=== PATIENT | male | born 1965 | race Caucasian/White ===

== ENCOUNTER 2016-06-13 22:19 | Inpatient (IN) | payer OTHER ==
[~2016-06-13] VITALS: Ht 175.3 cm; Wt 118.8 kg
[2016-06-13 22:22] VITALS: BP 162/73
[2016-06-13] MEDS ORDERED: HCTZ/LISINOPRIL1 TA3 PO (22:28)
[2016-06-13] MEDS ORDERED: LEVOTHYROXIN0.112 M1 PO (22:29)
[2016-06-13 22:45] LABS: HEMOGLOBIN 16.2 g/dL (14.1-18.0); LYMPH % 25.6 % (10-50)
[2016-06-13 23:14] LABS: BUN 20 mg/dL (7-18); GFR (ESTIMATED) 70 ML/MIN (>60)
--- NOTE | 2016-06-13 23:21 | Emergency Room Report ---
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 N Clinical Suspician of Infection? N Mental Status: 1 - Regular (Normal Baseline) Sepsis Risk:Low Sepsis Risk Have you (or family members/close friends) recently traveled outside the [place]? N If Yes, where/when: Have you had exposure to infectious disease within the past month? N TB? Other? Specify: Source patient, RN notes reviewed, family, EMS, old records Exam Limitations no limitations Comment acute onset of pressure like chest pain mid sternal with no radiation and was started tonight after eating - he has hx of gerd but this felt different Cardiac Chest Pain Chest pain indicative of cardiac Yes Timing/Duration 1-3 hours, gone now Severity/Quality moderate, pressure Location central Chest Pain Radiation no radiation Activities at Onset light activity Nitro Today/Relief 0.4 mg x 1, provided by EMS, mild relief Aspirin Treatment Today 81 mg x 4, provided by EMS Beta melissa treatment today no beta melissa taken Cardiac risk factors + family history, HTN controlled, obesity Prior Workup/Intervention no prior cardiac workup Timing/Duration this evening Severity moderate ALLERGIES Coded Allergies: No Known Allergies (06/13/16) Home Medications Reported Medications LISINOPRIL/HYDROCHLOROTHIAZIDE (Lisinopril-Hctz 20-12.5 MG Tab) 1 TAB PO DAILY #30 Levothyroxine Sodium (Levothyroxine 0.112MG) 0.112 MG PO DAILY #30 History Medical History General CAD? No Angina: No [place]: No Hypertension? Yes Hyperlipidemia? No CHF? No DVT? No PE? No COPD? No Asthma? No Anemia? No GERD? No Gastric ulcers? No GI Bleed? No Hernia? No Thyroid Problems? Yes Hypothyroidism? No CVA? No Seizures? No Diabetes? No Renal Insuffiency? No End Stage Renal Disease? No UTI? No Stones? No BPH? No GB Disease: No Nephritic Syndrome? No Asplenia? No Hepatitis? No Sickle Cell Disease? No Arthritis? No Migraines? No Cataracts? No Glaucoma? No MRSA? No HIV? No TB? No Anxiety? No Depression? No Cancer? No More? No Immunization Hx DT/Tetanus Unknown Surgical Hx Previous Surgery?Y LEFT FINGER Social History Smoking Hx Smoker: Current Every Day Smoker Tobacco: Yes Type Cigarettes Alcohol Alcohol: No Drugs none Review of Systems All Other Systems Reviewed and Negative Constitutional denies fever Eyes denies drainage ENT denies: epistaxis, throat pain. Respiratory denies cough, denies shortness of breath, denies wheezing Cardiovascular see HPI, chest pain, denies syncope Gastrointestinal denies abdominal pain, denies diarrhea, denies vomiting Genitourinary denies: dysuria, frequency, hesitancy, hematuria. Musculoskeletal denies back pain, denies joint pain, denies joint swelling, denies neck pain Skin denies rash Psychiatric/Neurological denies seizure Physical Exam Vital Signs Vital Signs Date Time Temp Pulse Resp B/P Pulse O2 O2 Flow FiO2 Ox Delivery Rate 06/13 2339 68 18 152/76 96 02/ 2305 73 16 163/74 92 / 2222 98.6 77 16 162/73 94 - WBC >12,000 or <4,000 or 10% bands? 2 or more SIRS Criteria Met? B/P:152/76 MAP:102 Creatinine >2.0? UA output<0.5ml/kg/hr for 2 hrs? Platelet count >100,000? Lactate >2.0mmol/1? INR >1.2 or PTT > than 60 sec? Evidence of Organ Dysfunction? Provider documented clinical suspician of infection? N Sepsis Criteria Count: 0 Sepsis Risk: Low Sepsis Risk General Appearance no apparent distress Eye Exam - bilateral eye PERRL, bilateral eye EOMI Ear, Nose, Throat normal ENT inspection Neck supple Respiratory Status No: respiratory distress. Lung Sounds bilateral: lungs clear. 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 No Results/Orders Laboratory Tests 06/13/160: Sodium 138, Potassium 3.9, Chloride 105, Carbon Dioxide 25, BUN 20 H, Creatinine 1.1, Estimated Creat Clear 134, Estimated GFR (MDRD) 70, Glucose 135 H, Calcium 8.7, Total Bilirubin 0.3, AST 14 L, ALT 31, Alkaline Phosphatase 65, Creatine Kinase 219, CK-MB (CK-2) Rel Index 1.0, CK and CKMB Interp 2.2, Troponin I < 0.02, Total Protein 7.3, Albumin 3.4, Globulin 3.9 H, Albumin/ Globulin Ratio 0.9 L, WBC 7.9, RBC 4.92, Hgb 16.2, Hct 45.9, MCV 93.4, RDW 13.7 , Plt Count 171, MPV 9.7, Gran % 62.7, Gran # 4.9, Lymphocytes % 25.6, Monocytes % 5.8, Eosinophils % 4.6, Basophils % 1.3, Lymphocytes # 2.0, Monocytes # 0.5, Eosinophils # 0.4, Basophils # 0.1, PUBS MCHC 35.3, MCH 33.0 H Current Medication Orders Sig/Torri Start time Last Medication Dose Route Stop Time Status Admin Famotidine 20 MG ONCE ONE 06/13 2314 DC 06/13 IV 06/13 2315 2308 Metoclopramide HCl 10 MG ONCE ONE 06/13 2314 DC 06/13 IVP 06/13 2315 2308 Sodium Chloride 8 ML ONCE ONE 06/13 2314 DC 06/13 IV 06/13 2315 2308 Metoclopramide HCl 0 .STK-MED ONE 06/13 2304 DC .ROUTE Famotidine 0 .STK-MED ONE 06/13 2303 DC IV Sodium Chloride 10 ML PRN PRN 06/13 2229 AC IV 06/14 2229 Orders Procedure Date/time Status Decision to admit 06/13 233 Active 12 LEAD EKG-ZORA (INITIAL) 06/13 2229 Active ELECTROCARDIOGRAM REQUEST 06/13 2229 Active CHEST(2 VIEWS-NOT PORTABLE) 06/13 2229 Active IV SALINE LOCK 06/13 2229 Active TRADEMARK PARALEGAL 06/13 2229 Active CBC WITH AUTO DIFF 06/13 2229 Complete CARDIAC ENZYMES 06/13 2229 Complete CHEM 12 PROFILE 06/13 2229 Complete CM/EKG 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 ST/Twave chgs XRAY/CT/US XRAY/CT/US XRAY chest XR interpretation by reviewed by me Xray Results normal/NAD Departure Departure Time of Disposition 2345 Disposition Still a Patient Clinical Impression Primary Impression: Chest pain Qualifiers: Chest pain type: precordial chest pain Qualified Code: R07.2 - Precordial pain Secondary Impressions: GERD (gastroesophageal reflux disease) Qualifiers: Esophagitis presence: esophagitis presence not specified Qualified Code: K21.9 - Gastro-esophageal reflux disease without esophagitis HTN (hypertension) Qualifiers: Hypertension type: essential hypertension Qualified Code: I10 - Essential (primary) hypertension Condition STABLE Referrals NELIA GHOTRA (Family) ED Critical Care Critical Care No at [phone]
--- NOTE | 2016-06-13 23:21 | Emergency Room Report ---
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 N Clinical Suspician of Infection? N Mental Status: 1 - Regular (Normal Baseline) Sepsis Risk:Low Sepsis Risk Have you (or family members/close friends) recently traveled outside the [place]? N If Yes, where/when: Have you had exposure to infectious disease within the past month? N TB? Other? Specify: Source patient, RN notes reviewed, family, EMS, old records Exam Limitations no limitations Comment acute onset of pressure like chest pain mid sternal with no radiation and was started tonight after eating - he has hx of gerd but this felt different Cardiac Chest Pain Chest pain indicative of cardiac Yes Timing/Duration 1-3 hours, gone now Severity/Quality moderate, pressure Location central Chest Pain Radiation no radiation Activities at Onset light activity Nitro Today/Relief 0.4 mg x 1, provided by EMS, mild relief Aspirin Treatment Today 81 mg x 4, provided by EMS Beta melissa treatment today no beta melissa taken Cardiac risk factors + family history, HTN controlled, obesity Prior Workup/Intervention no prior cardiac workup Timing/Duration this evening Severity moderate ALLERGIES Coded Allergies: No Known Allergies (06/13/16) Home Medications Reported Medications LISINOPRIL/HYDROCHLOROTHIAZIDE (Lisinopril-Hctz 20-12.5 MG Tab) 1 TAB PO DAILY #30 Levothyroxine Sodium (Levothyroxine 0.112MG) 0.112 MG PO DAILY #30 History Medical History General CAD? No Angina: No [place]: No Hypertension? Yes Hyperlipidemia? No CHF? No DVT? No PE? No COPD? No Asthma? No Anemia? No GERD? No Gastric ulcers? No GI Bleed? No Hernia? No Thyroid Problems? Yes Hypothyroidism? No CVA? No Seizures? No Diabetes? No Renal Insuffiency? No End Stage Renal Disease? No UTI? No Stones? No BPH? No GB Disease: No Nephritic Syndrome? No Asplenia? No Hepatitis? No Sickle Cell Disease? No Arthritis? No Migraines? No Cataracts? No Glaucoma? No MRSA? No HIV? No TB? No Anxiety? No Depression? No Cancer? No More? No Immunization Hx DT/Tetanus Unknown Surgical Hx Previous Surgery?Y LEFT FINGER Social History Smoking Hx Smoker: Current Every Day Smoker Tobacco: Yes Type Cigarettes Alcohol Alcohol: No Drugs none Review of Systems All Other Systems Reviewed and Negative Constitutional denies fever Eyes denies drainage ENT denies: epistaxis, throat pain. Respiratory denies cough, denies shortness of breath, denies wheezing Cardiovascular see HPI, chest pain, denies syncope Gastrointestinal denies abdominal pain, denies diarrhea, denies vomiting Genitourinary denies: dysuria, frequency, hesitancy, hematuria. Musculoskeletal denies back pain, denies joint pain, denies joint swelling, denies neck pain Skin denies rash Psychiatric/Neurological denies seizure Physical Exam Vital Signs Vital Signs Date Time Temp Pulse Resp B/P Pulse O2 O2 Flow FiO2 Ox Delivery Rate 06/13 2339 68 18 152/76 96 02/ 2305 73 16 163/74 92 / 2222 98.6 77 16 162/73 94 - WBC >12,000 or <4,000 or 10% bands? 2 or more SIRS Criteria Met? B/P:152/76 MAP:102 Creatinine >2.0? UA output<0.5ml/kg/hr for 2 hrs? Platelet count >100,000? Lactate >2.0mmol/1? INR >1.2 or PTT > than 60 sec? Evidence of Organ Dysfunction? Provider documented clinical suspician of infection? N Sepsis Criteria Count: 0 Sepsis Risk: Low Sepsis Risk General Appearance no apparent distress Eye Exam - bilateral eye PERRL, bilateral eye EOMI Ear, Nose, Throat normal ENT inspection Neck supple Respiratory Status No: respiratory distress. Lung Sounds bilateral: lungs clear. 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 No Results/Orders Laboratory Tests 06/13/160: Sodium 138, Potassium 3.9, Chloride 105, Carbon Dioxide 25, BUN 20 H, Creatinine 1.1, Estimated Creat Clear 134, Estimated GFR (MDRD) 70, Glucose 135 H, Calcium 8.7, Total Bilirubin 0.3, AST 14 L, ALT 31, Alkaline Phosphatase 65, Creatine Kinase 219, CK-MB (CK-2) Rel Index 1.0, CK and CKMB Interp 2.2, Troponin I < 0.02, Total Protein 7.3, Albumin 3.4, Globulin 3.9 H, Albumin/ Globulin Ratio 0.9 L, WBC 7.9, RBC 4.92, Hgb 16.2, Hct 45.9, MCV 93.4, RDW 13.7 , Plt Count 171, MPV 9.7, Gran % 62.7, Gran # 4.9, Lymphocytes % 25.6, Monocytes % 5.8, Eosinophils % 4.6, Basophils % 1.3, Lymphocytes # 2.0, Monocytes # 0.5, Eosinophils # 0.4, Basophils # 0.1, PUBS MCHC 35.3, MCH 33.0 H Current Medication Orders Sig/Torri Start time Last Medication Dose Route Stop Time Status Admin Famotidine 20 MG ONCE ONE 06/13 2314 DC 06/13 IV 06/13 2315 2308 Metoclopramide HCl 10 MG ONCE ONE 06/13 2314 DC 06/13 IVP 06/13 2315 2308 Sodium Chloride 8 ML ONCE ONE 06/13 2314 DC 06/13 IV 06/13 2315 2308 Metoclopramide HCl 0 .STK-MED ONE 06/13 2304 DC .ROUTE Famotidine 0 .STK-MED ONE 06/13 2303 DC IV Sodium Chloride 10 ML PRN PRN 06/13 2229 AC IV 06/14 2229 Orders Procedure Date/time Status Decision to admit 06/13 233 Active 12 LEAD EKG-ZORA (INITIAL) 06/13 2229 Active ELECTROCARDIOGRAM REQUEST 06/13 2229 Active CHEST(2 VIEWS-NOT PORTABLE) 06/13 2229 Active IV SALINE LOCK 06/13 2229 Active 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 ST/Twave chgs XRAY/CT/US XRAY/CT/US XRAY chest XR interpretation by reviewed by me Xray Results normal/NAD Departure Departure Time of Disposition 2345 Disposition Still a Patient Clinical Impression Primary Impression: Chest pain Qualifiers: Chest pain type: precordial chest pain Qualified Code: R07.2 - Precordial pain Secondary Impressions: GERD (gastroesophageal reflux disease) Qualifiers: Esophagitis presence: esophagitis presence not specified Qualified Code: K21.9 - Gastro-esophageal reflux disease without esophagitis HTN (hypertension) Qualifiers: Hypertension type: essential hypertension Qualified Code: I10 - Essential (primary) hypertension Condition STABLE Referrals NELIA GHOTRA (Family) ED Critical Care Critical Care No at [phone]
[2016-06-14] VITALS (11 sets, daily range): BP systolic 116–152; BP diastolic 50–95
--- NOTE | 2016-06-14 07:53 | CONSULT NOTE ---
Standard Demographics Patient Demo Date of Consultation: 06/14/16 Referring Provider: Karissa Em MD Reason for Consultation: NSTEMI PRIMARY DIAGNOSIS: CHEST PAIN Problem list Problem list: 1. Tobacco use, started as teenager 2. Hypothyroidism, on replacementon 3. Hypertension 4. Strong family history coronary disease in 2 brothers. One had bypass in his early 50s the other has had stents in his late 40s. 5. 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 History of present illness: History of present illness: 51-year-old white male developed onset of substernal chest discomfort, heaviness , tightness after eating supper. Patient states he fell he was having a heart attack. He called emergency medical services to transport him to the hospital. In route they gave him a sublingual nitroglycerin, he "belched" and symptoms resolved shortly thereafter. He was evaluated in the emergency department and kept overnight for observation. His cardiac troponins have returned elevated consistent with myocardial infarction. Electrocardiogram shows sinus rhythm without acute change. Cardiology consulted for further evaluation and treatment. Patient denies any further episodes of chest pain overnight. Past Medical History: General: Hypertension Yes CVA No Seizures No TB No COPD No Asthma No Diabetes No Angina No [place] No Hyperlipidemia No Cancer No MRSA No GB Disease No Past Surgical HX: Previous Surgery?Y LEFT FINGER Allergies Coded Allergies: No Known Allergies (06/13/16) Home medications: Reported Medications LISINOPRIL/HYDROCHLOROTHIAZIDE (Lisinopril-Hctz 20-12.5 MG Tab) 1 TAB PO DAILY #30 Levothyroxine Sodium (Levothyroxine 0.112MG) 0.112 MG PO DAILY #30 Current Medications: Current Medications Levothyroxine Sodium 0.112 MG DAILY PO (UNV) Lisinopril/HCTZ 1 TAB DAILY PO (UNV) Aspirin 324 MG ONCE ONE PO (UNV) Fentanyl Citrate 25 MCG PRN PRN IV (UNV) Fentanyl Citrate 50 MCG PRN PRN IV (UNV) Flumazenil 0.2 MG PRN PRN IV (UNV) Heparin Sodium/Sodium Chloride 3,000 UNITS PRN PRN IV (UNV) Lidocaine HCl 20 ML ONCE ONE IJ (UNV) Midazolam HCl 1 MG PRN PRN IV (UNV) Midazolam HCl 1 MG PRN PRN IV (UNV) Naloxone HCl 0.4 MG [id number] PRN IV (UNV) Nitroglycerin 800 MCG PRN PRN IV (UNV) Prasugrel 60 MG ONCE ONE PO (UNV) Verapamil HCl 5 MG PRN PRN IV (UNV) Heparin Sodium/Sodium Chloride 1,500 ML .STK-MED ONE IV (DC) Heparin Sodium (Beef Lung) 0 .STK-MED ONE .ROUTE (DC) Lidocaine HCl 0 .STK-MED ONE .ROUTE (DC) Nitroglycerin 1 IN Q8 TP (UNV) Nicotine 21 MG DAILYP PRN TD (UNV) Ondansetron HCl 4 MG Q6HP PRN IV (UNV) Sodium Chloride 1,000 ML .[id number] IV (UNV) Sodium Chloride 10 ML PRN PRN IV (UNV) Pantoprazole Sodium 40 MG BID IV (UNV) Nitroglycerin 0 .STK-MED ONE .ROUTE (DC) Nitroglycerin 1 IN ONCE ONE TP (DC) Famotidine 20 MG ONCE ONE IV (DC) Metoclopramide HCl 10 MG ONCE ONE IVP (DC) Sodium Chloride 8 ML ONCE ONE IV (DC) Metoclopramide HCl 0 .STK-MED ONE .ROUTE (DC) Famotidine 0 .STK-MED ONE IV (DC) Sodium Chloride 10 ML PRN PRN IV Immunization HX DT/Tetanus 1-4 Years Flu Refused Pneumonia Never Had Other WOULD LIKE FLU SHOT AT DISCHARGE TB Test in last year No Family history Family HX Family Hx Insignificant No Diabetes No CAD Yes Hypertension Yes Hyperlipidemia No Cancer Yes TB No Social Hx: Smoking HX Tobacco Yes Type Cigarettes Packs/day 1 1/2 - 2 PACKS Are you/the child exposed to second-hand smoke: Yes Alcohol Alcohol: No Hx of Drug Use Drug Use? No Patien't marital status is Patient's support system is good Review of systems: Constitutional No: no symptoms reported. Respiratory No: no symptoms reported. Cardiovascular see HPI, chest pain Gastrointestinal/Abdominal No no symptoms reported Genitourinary No: no symptoms reported. Musculoskeletal No: no symptoms reported. Neurological No: no symptoms reported. Exam: Admission Vital Signs: 1ST Vital Signs Result Date Time Pulse Ox 94 06/13 2221 B/P 162/73 06/13 2221 Temp 98.6 06/13 2221 Pulse 77 06/13 2221 Resp 16 06/13 2221 O2 Delivery ROOM AIR 06/14 120 O2 Flow Rate 2 06/14 0349 Last Vital Signs: Vital Signs Result Date Time Pulse Ox 96 06/14 442 B/P 116/50 06/14 442 O2 Delivery ROOM AIR 06/14 442 Temp 97.5 06/14 442 Pulse 61 06/14 442 Resp 20 06/14 442 O2 Flow Rate 2 06/14 0349 Exam General appearance: alert, awake, no acute distress Neck: no carotid bruit, no JVD Cardiovascular: regular rate & rhythm, no murmur Respiratory: good air movement, wheezing ABD: soft, no tenderness Extremities: moves all, no peripheral edema Neuro: alert, intact, oriented, speech clear Laboratory data: Laboratory Tests 06/14/16 0610: Creatine Kinase 283, CK-MB (CK-2) Rel Index 4.7 H, CK and CKMB Interp 13.3 *H, Troponin I 1.12 H 06/14/16 0305: Creatine Kinase 238, CK-MB (CK-2) Rel Index 2.7, CK and CKMB Interp 6.4 H, Troponin I 0.50 H 06/14/16 0000: TSH 1.87, Thyroxine (T4) 6.6 06/13/16 2240: Sodium 138, Potassium 3.9, Chloride 105, Carbon Dioxide 25, BUN 20 H, Creatinine 1.1, Estimated Creat Clear 134, Estimated GFR (MDRD) 70, Glucose 135 H, Calcium 8.7, Total Bilirubin 0.3, AST 14 L, ALT 31, Alkaline Phosphatase 65, Creatine Kinase 219, CK-MB (CK-2) Rel Index 1.0, CK and CKMB Interp 2.2, Troponin I < 0.02, Total Protein 7.3, Albumin 3.4, Globulin 3.9 H, Albumin/ Globulin Ratio 0.9 L, WBC 7.9, RBC 4.92, Hgb 16.2, Hct 45.9, MCV 93.4, RDW 13.7 , Plt Count 171, MPV 9.7, Gran % 62.7, Gran # 4.9, Lymphocytes % 25.6, Monocytes % 5.8, Eosinophils % 4.6, Basophils % 1.3, Lymphocytes # 2.0, Monocytes # 0.5, Eosinophils # 0.4, Basophils # 0.1, PUBS MCHC 35.3, MCH 33.0 H Plan: Assessment: 1. Chest pain with positive troponins without electrocardiogram change consistent with non-ST elevation myocardial infarction. Risk and benefits of cardiac catheterization discussed with the patient. He agrees to proceed. Patient will receive 60mg of Effient by mouth and aspirin 324 mg by mouth now prior to cath. 2. Hypertension 3. Tobacco use 4. Hypothyroidism Recommendations: Discussed with Dr. Argueta. See above at 1224
--- NOTE | 2016-06-14 07:58 | PHARMACY CLINIC NOTE ---
Patient Demographics Patient Demographics Admission date: 06/14/16 Date: 06/14/16 Time: 0758 Allergies Coded Allergies: No Known Allergies (06/13/16) HEIGHT- FT: 5 IN: 9.00 K.830 VTE General Information Labs: Laboratory Tests 06/13 2240 Hematology Hgb (14.1 - 18.0 g/dL) 16.2 Hct (42.0 - 52.0 %) 45.9 Plt Count (142 - 424 K/mm3) 171 Disclaimer The following section includes nursing documentation that has been pulled in for pharmacy review. Patient's VTE score: 2 Patient's VTE Risk: VERY LOW RISK Clinical trial participant? No VTE prophylaxis NQF [id number] VTE prophylaxis ordered? Yes Type of prophylaxis/treatment: SHELDON at 0758
--- NOTE | 2016-06-14 08:26 | RADIOLOGY REPORT PS360 ---
CHEST(2 VIEWS-NOT PORTABLE) HISTORY: Chest pain CP ORDERING PHYSICIAN: Regan Em MD PATIENT AGE: 51 years COMPARISON: None available FINDINGS: The cardiomediastinal silhouette and pulmonary vascularity are within normal limits. There is coarsening of the bronchovascular markings which may be related to chronic bronchitis. Mild hyperinflation. No lobar consolidation or collapse.. No acute bony abnormalities. IMPRESSION: Coarsening of bronchovascular markings suggesting chronic peribronchial inflammatory change which may be confirmed with follow-up otherwise negative
--- NOTE | 2016-06-14 09:06 | HISTORY AND PHYSICAL REPORT ---
Demographics: Admit date: 06/13/16 Chief complaint: chest pain PRIMARY DIAGNOSIS: CHEST PAIN Allergies: Coded Allergies: No Known Allergies (06/13/16) History of present illness: History of present illness: 51-year-old white male developed onset of substernal chest discomfort, heaviness , tightness after eating supper. Patient states he fell he was having a heart attack. He called emergency medical services to transport him to the hospital. In route they gave him a sublingual nitroglycerin, he "belched" and symptoms resolved shortly thereafter. He was evaluated in the emergency department and kept overnight for observation. His cardiac troponins have returned elevated consistent with myocardial infarction. Electrocardiogram shows sinus rhythm without acute change. Cardiology consulted for further evaluation and treatment. Patient denies any further episodes of chest pain overnight. Past medical history: Family HX Diabetes No CAD Yes Hypertension Yes Hyperlipidemia No Cancer Yes TB No Immunization HX DT/Tetanus 1-4 Years Ago Flu Refused Pneumonia Never Had Other WOULD LIKE FLU SHOT AT DISCHARGE TB Test in last year No General CAD? No Angina: No IA: No Hypertension? Yes Hyperlipidemia? No CHF? No DVT? No PE? No COPD? No Asthma? No Anemia? No GERD? Yes Gastric ulcers? No GI Bleed? No Hernia? No Thyroid Problems? Yes Hypothyroidism? No CVA? No Seizures? No Diabetes? No Renal Insuffiency? No UTI? No Stones? No BPH? No GB Disease: No Nephritic Syndrome? No Asplenia? No Hepatitis? No Sickle Cell Disease? No Arthritis? No Migraines? No Cataracts? No Glaucoma? No MRSA? No HIV? No TB? No Anxiety? No Depression? No Cancer? No More? No Past Surgical HX Previous Surgery?Y LEFT FINGER Current home meds: Reported Medications LISINOPRIL/HYDROCHLOROTHIAZIDE (Lisinopril-Hctz 20-12.5 MG Tab) 1 TAB PO DAILY #30 Levothyroxine Sodium (Levothyroxine 0.112MG) 0.112 MG PO DAILY #30 Social Hx: Smoking HX Tobacco Yes Type Cigarettes Packs/day 1 1/2 - 2 PACKS Are you/the child exposed to second-hand smoke: Yes Alcohol Alcohol: No Hx of Drug Use Drug Use? No Patien't marital status is Patient's support system is good Review of systems: Constitutional No: fever. Eyes No: drainage. Ears, Nose, Mouth, Throat No epistaxis, No throat pain Respiratory No: cough, shortness of breath, wheezing. Cardiovascular see HPI, chest pain, No palpitations, No syncope Gastrointestinal/Abdominal No diarrhea, nausea, No vomiting Genitourinary No: dysuria, frequency, hesitancy, hematuria. Musculoskeletal No: back pain, joint pain, joint swelling, neck pain. Skin No: rash. Neurological No: seizure disorder. Psychiatric No: depressed. Exam: Lab data for last 24 hours: Laboratory Tests 06/14/16 0610: Creatine Kinase 283, CK-MB (CK-2) Rel Index 4.7 H, CK and CKMB Interp 13.3 *H, Troponin I 1.12 H 06/14/16 0305: Creatine Kinase 238, CK-MB (CK-2) Rel Index 2.7, CK and CKMB Interp 6.4 H, Troponin I 0.50 H 06/14/16 0000: TSH 1.87, Thyroxine (T4) 6.6 06/13/16 2240: Sodium 138, Potassium 3.9, Chloride 105, Carbon Dioxide 25, BUN 20 H, Creatinine 1.1, Estimated Creat Clear 134, Estimated GFR (MDRD) 70, Glucose 135 H, Calcium 8.7, Total Bilirubin 0.3, AST 14 L, ALT 31, Alkaline Phosphatase 65, Creatine Kinase 219, CK-MB (CK-2) Rel Index 1.0, CK and CKMB Interp 2.2, Troponin I < 0.02, Total Protein 7.3, Albumin 3.4, Globulin 3.9 H, Albumin/ Globulin Ratio 0.9 L, WBC 7.9, RBC 4.92, Hgb 16.2, Hct 45.9, MCV 93.4, RDW 13.7 , Plt Count 171, MPV 9.7, Gran % 62.7, Gran # 4.9, Lymphocytes % 25.6, Monocytes % 5.8, Eosinophils % 4.6, Basophils % 1.3, Lymphocytes # 2.0, Monocytes # 0.5, Eosinophils # 0.4, Basophils # 0.1, PUBS MCHC 35.3, MCH 33.0 H Admission vital signs: 1ST Vital Signs Result Date Time Pulse Ox 94 06/13 2221 B/P 162/73 06/13 2221 Temp 98.6 02/06 2222 Pulse 77 06/13 2222 Resp 16 06/13 2222 O2 Delivery ROOM AIR 06/14 0121 O2 Flow Rate 2 06/14 0349 Exam General appearance: alert, active Eyes: PERRLA ENT: dry mucous membranes Neck: no carotid bruit, no JVD Cardiovascular: regular rate & rhythm, murmur Respiratory: no respiratory distress ABD: soft, no tenderness, no guarding, no organomegaly Genitourinary: no hematuria Extremities: moves all Musculoskeletal: equal muscle strength Skin: dry, intact 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 GERD (gastroesophageal reflux disease) 2. HTN (hypertension) 3. Tobacco use 4. Non-STEMI (non-ST elevated myocardial infarction) Plan: will see card and have cath today at 0906
--- NOTE | 2016-06-14 13:21 | RADIOLOGY REPORT PS360 ---
CARDIAC CATHETERIZATION DATE OF CATHETERIZATION:06/14/2016 10:08 AM PROCEDURES: 1. Right arterial access 2. Right retrograde radial artery angiogram 3. Left heart catheterization 4. Left ventriculogram 5. Selective coronary angiogram 6. Drug-eluting stent deployment to the distal dominant circumflex artery INDICATION FOR TEST: 1. Acute non-ST elevation myocardial infarction 2. Coronary artery disease 3. Right radial artery occlusion Informed consent was obtained prior to the procedure. COMPLICATIONS: None ESTIMATED BLOOD LOSS: Less than 10 ml. TECHNIQUE: One percent lidocaine used to anesthetize the right anterior aspect of the wrist. The right radial artery was accessed via the Seldinger technique. A 5 Burmese sheath was placed in the right radial artery. 2.5 mg of verapamil and 800 mcg of nitroglycerin were given through the arterial sheath. The 0.35 wire was stopped from entering the brachial artery. Because of this the Latasha catheter was gently advanced just distal to the wire obstruction and retrograde angiography was performed. This demonstrated an unusual angiographic appearance of the distal brachial artery appearing to trifurcate. Because of this anomalous circulation I decided to proceed with femoral access. The arterial sheath was removed from the radial artery and good hemostasis was achieved using TR band. Following this one percent lidocaine was used to anesthetize the right groin in the right femoral artery was accessed via the Seldinger technique. A 4 Burmese sheath was placed in the right femoral artery and a JL 4 JR4 catheter were passed over a 3 J-wire performing left heart catheterization left ventriculogram and selective coronary angiography. At the end of the diagnostic procedure 12,000 units of intravenous heparin was administered which was 100 units per kilo based on patient weighing 117 kg. The 4 Burmese sheath was exchanged for a 6 Burmese sheath and the ACT was measured greater than 400 seconds. An EVD 3.75 guide catheter was used intubate the left main artery and a BMW wire was used to traverse the stenosis in the distal obtuse marginal artery. A 2.25 x 12 mm resolute stent was deployed at 14 valentin reducing this 90% stenosis to 0%. The wire was removed and angiographic results demonstrated wide patency. MARTHA II flow was present in the distal obtuse marginal artery before the procedure and MARTHA-3 flow present after the stent deployment. At the end of the procedure the apparatus was removed the groin was reprepped closure changed sheath was removed good hemostasis was achieved using Perclose device patient was transferred to the postop holding area in stable condition ANGIOGRAPHIC RESULTS: 1. The left main artery has an ostial 30% nonflow limiting stenosis 2. The left anterior descending artery has proximal 20% stenoses throughout with multiple 30 and 40% stenoses throughout the entire mid segment. Distally the LAD has a 90% stenosis immediately proximal to a bifurcation as the LAD wraps the apex. The 90% stenosis is at a 1.5 to 2 mm vessel 3. The circumflex artery is a dominant vessel and has an ostial 20% stenosis with mild proximal vascular ectasia. There are 3 small obtuse marginal arteries and then a large fourth obtuse marginal artery which has a proximal concentric 50-60% stenosis. The vessel is 2.25 to 2 mm in diameter at the stenotic area distally the terminal obtuse marginal artery has a proximal concentric greater than 90% stenosis. 4. The right coronary artery is nondominant yet still a large vessel. The vessel has mild vascular ectasia throughout. The proximal segment has 10-20% stenoses while the mid segment has 30% stenosis at the junction of the RV marginal branch. Distally the posterior descending artery has a mid vessel hazy 40-50% diameter stenosis 5. The DANIEL ventriculogram reveals normal 65% 6. 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 Severe stenosis in the terminal obtuse marginal artery which is most likely the culprit vessel for the non-ST elevation myocardial infarction 3. Successful stenting of the terminal obtuse marginal artery severe disease reduced to 0% with 1 drug-eluting stent 4. Persistent severe disease in the very distal LAD at a 1.5 to 2 mm junction proximal to a bifurcation as the LAD wraps the apex 5. Moderate diffuse disease throughout the mid LAD with moderate disease in the proximal large fourth obtuse marginal artery 6. Normal ejection fraction 7. Mildly elevated LVEDP PLAN: 1. Effient and aspirin for one year 2. LDL less than 70 3. Risk factor modification 4. The distal LAD is 2 small for percutaneous revascularization and it is highly recommended the patient undergo aggressive medical management. What is concerning is his diffuse moderate atheromatous plaque throughout the LAD system and fourth obtuse marginal artery. Patient is to avoid tobacco products undergo cardiac rehabilitation and aggressive risk factor modification 5. Low-dose beta blockers edd inhibitors prior to discharge home along with high dose Lipitor
--- NOTE | 2016-06-14 15:40 | RADIOLOGY REPORT PS360 ---
PROCEDURE: 2-D M-mode and color Doppler study INDICATIONS FOR THE TEST: Chest pain X COPD Heart Murmur Tobacco SmokingX Palpitations Fatigue Syncope Edema HypertensionXDiabetes Mellitus Rheumatic Fever SOB SMITH ObesityXHyperlipidemia Family History HD Additional History TDS SECONDARY TO BODY HABITUS PATIENT INFORMATION HEIGHT: 69 WEIGHT:265 GENDER: Male B/P:116/50 2-D/M-MODE INTERPRETATION: 2-D MEASUREMENTS OBSERVED VALUES IN CMS Right Ventricular Dimension (RVDd) 2.2 Interventricular Septum (Thickness)(IVsd) 1.0 Left Ventricular Internal Dimensions(LVIDd) 5.7 Left Ventricular Posterior Wall (Thickness)(LVPWd) 1.0 Aortic Root 3.3 Aortic Cusp Separation 2.2 Left Atrial Dimensions (LAD) 3.7 2D 1. Technically difficult study because of the patient's factor and poor acrostic Windows. 2. The left atrium is normal size, the left ventricle is normal size, there is no concentric left ventricular hypertrophy, visually estimated ejection fraction 55% with no obvious regional wall motion abnormality, endocardial surfaces are poorly visualized. 3. The right-sided chambers are not well visualized, however the right ventricle is contractility appears to be normal. 4. The aortic valve is minimally thickened and fibrosed consistent with aortic sclerosis, there is no aortic stenosis. 5. Mitral valve has mild mitral calcification, there is no mitral stenosis. 6. The tricuspid and pulmonic valve are not well visualized. 7. No significant pericardial effusion noted. DOPPLER INTERROGATION: Doppler interrogation of the aortic mitral and tricuspid valvular presence of trace mitral and tricuspid regurgitation. The tricuspid regurgitant jet velocity insufficient for calculation of the right ventricular systolic pressure. CONCLUSION: 1. Technically difficult study because of the patient's factor and poor acrostic Windows. 2. Normal left ventricular size, preserved left ventricular systolic function visually estimated ejection fraction 55% with no obvious regional wall motion abnormality. 3. The right-sided chambers are not well visualized, the contractility of the right ventricle appears to be normal. 4. Trace mitral and tricuspid regurgitation. 5. No significant pericardial effusion noted.
[2016-06-15] VITALS (7 sets, daily range): BP systolic 123–154; BP diastolic 60–88
[2016-06-15 06:53] LABS: HEMOGLOBIN 16.4 g/dL (14.1-18.0); LYMPH # 1.9 K/mm3 (0.7-4.5)
--- NOTE | 2016-06-15 09:37 | ACUTE CARE PROGRESS NOTE (QUA) ---
Progress Notes Subjective Date 06/15/16 Time 0930 Note 51 yo WM in NAD. Feeling "100% better" and ready to go home. Objective Findings Last VS-Temp:97.5 B/P:154/71 Pulse:73 Resp:20 SaO2:94 ROOM AIR Last weight lbs:262 oz:0 K.841 Method:Floor Scales Exam General appearance: alert, awake, no acute distress Cardiovascular: regular rate & rhythm Respiratory: clear to auscultation Extremities: moves all, no peripheral edema Neuro: alert, intact, oriented Reviewed: medications, vital signs, lab results Assessment/Plan Problem List 1. GERD (gastroesophageal reflux disease) Qualifiers: Esophagitis presence: esophagitis presence not specified Qualified Code: K21.9 - Gastro-esophageal reflux disease without esophagitis 2. HTN (hypertension) Assessment/Plan: Add coreg. Qualifiers: Hypertension type: essential hypertension Qualified Code: I10 - Essential ( primary) hypertension 3. Tobacco use Assessment/Plan: Nicotine patch. Tobacco cessation urged. 4. Non-STEMI (non-ST elevated myocardial infarction) Assessment/Plan: Continue KATY/HCTZ and add coreg. Continue DAPT. 5. Hyperlipidemia Assessment/Plan: continue statin therapy. Patient condition Stable Plan: Ok for discharge home. Off work until follow up next week. Recommend cardiac rehab. This inpt stay is expected to cross 2 MNs from start of care Yes at 0936
--- NOTE | 2016-06-15 11:14 | ACUTE CARE PROGRESS NOTE (QUA) ---
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 GERD (gastroesophageal reflux disease) 2. HTN (hypertension) 3. Tobacco use 4. Non-STEMI (non-ST elevated myocardial infarction) 5. Hyperlipidemia Patient condition Stable Plan: initiate discharge plan This inpt stay is expected to cross 2 MNs from start of care Yes Comments: doing better at 1115
--- NOTE | 2016-06-15 11:14 | ACUTE CARE PROGRESS NOTE (QUA) ---
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 GERD (gastroesophageal reflux disease) 2. HTN (hypertension) 3. Tobacco use 4. Non-STEMI (non-ST elevated myocardial infarction) 5. Hyperlipidemia Patient condition Stable Plan: initiate discharge plan This inpt stay is expected to cross 2 MNs from start of care Yes Comments: doing better at 1115
[2016-06-15] MEDS ORDERED: NICOTINE PATCH;21 MG TD (11:18)
--- NOTE | 2016-06-15 11:23 | DISCHARGE SUMMARY STANDARD ---
See Addendum Demographics Admit date: 06/13/16 Discharge date: 06/15/16 History of present illness History of present illness 51-year-old white male developed onset of substernal chest discomfort, heaviness , tightness after eating supper. Patient states he fell he was having a heart attack. He called emergency medical services to transport him to the hospital. In route they gave him a sublingual nitroglycerin, he "belched" and symptoms resolved shortly thereafter. He was evaluated in the emergency department and kept overnight for observation. His cardiac troponins have returned elevated consistent with myocardial infarction. Electrocardiogram shows sinus rhythm without acute change. Cardiology consulted for further evaluation and treatment. Patient denies any further episodes of chest pain overnight. Hospital Course Hospital Course: pt with chest pain and seen in ed with prob angina and was admitted and had nonstemi and then cath with stent and feels well - discussed with pt need for lipid and wt control and no tob and f/u with card Discharge diagnoses Problem List 1. GERD (gastroesophageal reflux disease) 2. HTN (hypertension) 3. Tobacco use 4. Non-STEMI (non-ST elevated myocardial infarction) 5. Hyperlipidemia Medications Medications: Discharge meds are as noted. Follow up Follow up in office in: 2 WEEKS with: Thang Loepz MD Comment: see pcp and dr lopez for follow up at 1225
[2016-06-15] MEDS ORDERED: COREG 3.125M3.125 MG PO (13:12)
[2016-06-15] MEDS ORDERED: EFFIENT10 M2 PO (13:13)
== END 2016-06-15 13:25 | disposition home or self-care (01) | DRG 247 ==
LOC: ER 22:19 → 2ND 23:41 → ER 23:41 → 2ND 23:46 → ICU 06-14 11:34
PROVIDERS: Emergency Medicine; Internal Medicine
PROC: 4A023N7 Measurement of Cardiac Sampling and Pressure, Left Heart, Percutaneous Approach (ICD-10-PCS; principal; 2016-06-14 09:45)
PROC: B2111ZZ Fluoroscopy of Multiple Coronary Arteries using Low Osmolar Contrast (ICD-10-PCS; principal; 2016-06-14 09:45)
PROC: B2151ZZ Fluoroscopy of Left Heart using Low Osmolar Contrast (ICD-10-PCS; principal; 2016-06-14 09:45)
PROC: 027034Z Dilation of Coronary Artery, One Artery with Drug-eluting Intraluminal Device, Percutaneous Approach (ICD-10-PCS; principal; 2016-06-14 09:45)
DX: I21.4 Non-ST elevation (NSTEMI) myocardial infarction (principal); I74.8 Embolism and thrombosis of other arteries; I25.10 Atherosclerotic heart disease of native coronary artery without angina pectoris; I10 Essential (primary) hypertension; Z72.0 Tobacco use; K21.9 Gastro-esophageal reflux disease without esophagitis
CPT/HCPCS: C1725; C1760; C1769; C1876; C1894; J1644; Q2038; Q9967